=== PATIENT | female | born 1980 | race Caucasian/White ===

== ENCOUNTER 2022-03-25 17:52 | Emergency (ER) | payer OTHER, MEDICAID ==
[~2022-03-25] VITALS: Ht 170.2 cm; Wt 100.0 kg
[2022-03-25] MEDS ORDERED: LORAZEPAM 1MG TABLET PO ONE (18:30)
[2022-03-25 20:15] LABS: BASOPHILS % 0.5 % (0.0-2.0); EOSINOPHILS % 0.1 % (0.0-5.0); HEMATOCRIT. 39.5 % (36.0-48.0); HEMOGLOBIN. 12.9 g/dL (12.0-16.0); LYMPHOCYTES % 20.1 % (20.0-50.0); MEAN CORPUSCULAR HEMOGLOBIN 27.2 pg (28.0-32.0); MEAN CORPUSCULAR VOLUME 83.6 fL (81.0-99.0); MEAN PLATELET VOLUME 10.2 fl (7.4-10.4); MONOCYTES % 7.2 % (2.0-8.0); NEUTROPHILS % 72.1 % (40.0-76.0); PLATELET 199 x1000/uL (130-400); RED BLOOD CELL COUNT 4.73 mill/uL (4.2-5.4)
[2022-03-25 20:29] LABS: CHLORIDE 105 mEq/L (98-107)
[2022-03-25 21:37] VITALS: BP 159/76
== END 2022-03-25 21:46 | disposition home or self-care (01) ==
LOC: ER 17:52
DX: F41.9 Anxiety disorder, unspecified (principal); R20.2 Paresthesia of skin; F32.A Depression, unspecified
CPT/HCPCS: 36415; 80053; 85025; 93005; 99284